=== PATIENT | male | born 1985 | race Caucasian/White ===

== ENCOUNTER 2021-03-08 09:07 | Outpatient (RCR) | payer OTHER, SELFPAY ==
[2021-03-08] MEDS: ACETAMINOPHEN 325 MG TABLET 650 MG PO (13:11)
[2021-03-08] MEDS: diphenhydrAMINE HCl CAP 25 MG CAPSULE PO (13:12)
[2021-03-08] MEDS: FAMOTIDINE 20 MG TABLET PO (13:12)
[2021-03-08 13:15] VITALS: BP 150/86; PULSE 100; RESP 18; TEMP 36.5; O2SAT 97
[2021-03-08 14:41] VITALS: BP 154/80
--- NOTE | 2021-03-09 10:14 | PC.NURSE ---
Patient states he is feeling great, no longer having elevated temperatures.
== END 2021-03-08 17:00 ==
LOC: AMCINF 09:07
PROVIDERS: PCP Physician Assistant Medical; Visit Provider Internal Medicine Hematology & Oncology
DX: U07.1 COVID-19 (principal); I10 Essential (primary) hypertension; E11.9 Type 2 diabetes mellitus without complications
CPT/HCPCS: A9270; M0243; Q0243

== ENCOUNTER 2025-01-22 01:25 | Day surgery (SDC) | payer OTHER, SELFPAY ==
--- NOTE | 2025-01-14 12:22 | SUR.PREOP ---
[facility] has started construction of its new state of the art ER which will open Spring 2026. With this, we anticipate parking may be a challenge for some our surgical patients and families. Parking spaces are limited but are available for all Surgical, obstetrics, and ER patients sharing this lot. If you arrive and find you are having a hard time finding a parking space, please note that we understand the challenges, please drive around the hospital and park near Hospital Entrance 1. When you enter this entrance, you can ask a volunteer to direct or take you back to the surgical waiting area to check in. We appreciate everyone?s understanding of these expected challenges while we build for your future. Report to the Outpatient Waiting Room, entrance under the green pavilion located off [address], at time _1245__ on date 01/22/25__. Planned Procedure Time: _1445__.? Time changes happen often and if your time is changed the preop area will call you the afternoon before. - You and your visitor will be asked to self-screen and do not enter if you have any COVID symptoms. Please call surgeon if you need to reschedule. - A mask is optional within the hospital at this time. Patients may have clear liquids (water, carbonated beverages, clear teas, apple juice) until 3 hours prior to surgery with a maximum of 20 ounces. - No food from 8hrs prior thel time of surgery and no smoking, or chewing tobacco (or any form of nicotine). No chewing gum, candy or mints. Take only the following medications with a SIP of water on the morning of surgery: __amlodipine._Instructed pt to take Lantus as ordered. No additional short acting insulin at bedtime, For surgery after 1100 take 1/2 of AM insulin dose. Call the PACU Day of surgery for any concerns Day of surgery. DO NOT STOP ANY OF YOUR OTHER PRESCRIPTION MEDICATIONS PRIOR TO SURGERY EXCEPT THE FOLLOWING Hold all vitamins and supplements for 3 days per anesthesiologist. Medications to discontinue per physician __(pt stated he does not take Ibuprofen frequently). Advise provider for further details. Date to take last dose of vitamins__01/18/25. Please no make-up, nail kazakh, hairspray, perfume, deodorant, or body powder the day of surgery.? No jewelry (including any body piercings) or valuables the day of surgery, leave them at home.? Please take a shower or bath the night before, or the morning of, surgery with an antibacterial soap.? Wear comfortable, loose fitting clothing.? Children are encouraged to wear pajamas. - Jewelry must be removed prior to entering the operating room.? Rings and piercings that are not removed may be cut off. - The hospital will not accept responsibility for valuables.? - Please leave all valuables, including medications, at home the day of surgery. If you are going home after surgery, a licensed dedicated intermodal truck driver must drive you home.? - NO public transportation without another adult if you receive anesthesia. - We recommend that an adult stay with you for 24 hours following discharge. - We also recommend that you do not drive, make important decision, drink alcoholic beverages, or take any drugs that were not prescribed by your health care provider for at least 24 hours after your discharge time. For Pediatric surgeries, we recommend two adults accompany the child home. Follow any additional instructions given to you from your surgeon. Telephone instructions given to ___Adam____and asked if any additional questions and then verbalized understanding. Patient advised to call surgeon office or pre surgery nurse liaison [phone] if any additional questions.
[2025-01-14 12:58] VITALS: BMI 44.9
--- OUTSIDE RECORDS SUMMARY | 2025-01-22 01:28 | XMS_ITS | Encounter Summary ---
Author Organization [facility] Address [address] [place] [address] Care Team Providers Care Platform Supervisor Name Role Phone Soumya Patton Primary Care Provider [phone] Encounter Details Date Type Department Care Team (Late st Contact Info) Description 01/17/2025 Orders Only [facility] [address] [place], [place] [id number] Vasquez West[address] [address] Social History Tobacco Use Types Packs/Day Years Used Date Smoking Tobacco: Every Day Smokeless Tobacco: Never Comments:Occassional Alcohol Use Standard Drinks/Week Comments Yes 0 (1 standard drink = 0.6 oz pur e alcohol) AUDIT-C Answer Date Recorded Frequency of Alcohol Consumption Never 10/20/2018 Average Number of Drinks Not on file 019 Frequency of Binge Drinking Not on file 10/02 PHQ-2 Answer Date Recorded PHQ-2 Score - If the patient scores above 3, please move on to questions 3-9 0 08/06/2021 Sex and Gender Information Value Date Recorded Sex Assigned at Not on file Legal Sex Male 5:58 PM CDT Gender Identity Not on file Sexual Orientation Not on file documented as of this encounter Plan of Treatment Not on file documented as of this encounter Results * (ABNORMAL) BASIC METABOLIC PANEL (01/17/2025 8:06 AM CDT) Pathologist [facility] GLUCOSE 160(H) 70 - 99 MG/DL 01/17/2025 9:12 AM CDT [facility] BUN 12 7 - 18 MG/DL 01/17/2025 9:12 AM T [facility] CREATININE S/P/B 0.75 0.7 - 1.3 MG/DL 01/17/2025 9:12 AM T [facility] SODIUM S/P/B 137 136 - 145 MMOL/L 01/17/2025 9:12 AM T [facility] POTASSIUM S/P/B 3.9 3.5 - 5.1 MMOL/L 01/17/2025 9:12 AM T [facility] CHLORIDE S/P/B 102 100 - 108 MMOL/L 01/17/2025 9:12 AM [facility] CO2 29.8 21 - 32 MMOL/L 01/17/2025 9:12 AM [facility] CALCIUM S/P/B 8.9 8.5 - 10.1 MG/DL 01/17/2025 9:12 AM [facility] ANION GAP 5.2 5 - 15 MMOL/L 01/17/2025 9:12 AM [facility] BUN CREATININE RATIO 16.0 6 - 26 01/17/2025 9:12 AM [facility] GFR ESTIMATE >90 >90 ML/MIN/1.7 3 M2 01/17/2025 9:12 AM [facility] Comment: NOTE: eGFR is not calculated for patients <18 years of age. This is an estimated GFR calculation using the new CKD EPI creatinine equation without race and so does not require a correction factor for race. This estimated GFR should not be used for calculating drug doses. 01/17/2025 8:06 AM CDT Vasquez West MD LABORATORY Final Result [facility] [address] [place] [address], documented in this encounter Visit Diagnoses Diagnosis Type I diabetes mellitus with manifestations ([facility]/HCC [facility])- Primary Type I (juvenile type) diabetes mellitus with other specified manifestations, not stated as uncontrolled documented in this encounter Care Teams Platform Supervisor Relationship Specialty Start Date End Date Soumya Patton PA [address] [place], [place] [id number] PCP - General PHYSICIAN BOOM CAT OPERATOR 08/14/24 documented as of this encounter
--- OUTSIDE RECORDS SUMMARY | 2025-01-22 01:28 | XMS_ITS | Clinical Summary ---
Author Organization [facility] Address [place] [address] Care Team Providers Care Offset Plate Maker Name Role Phone Soumya Patton Primary Care Provider [phone] Allergies No known active allergies Medications insulin aspart 100 UNIT/ML injection (PEN)Indication s:Sliding Inject into the skin 3 (three) times daily before meals. Active insulin glargine 100 UNIT/ML injection (PEN) Inject 76 Units into the skin nightly at bedtime. Active lisinopril 20 MG tablet Take 20 mg by mouth 2 (two) times a day. Active amlodipine 5 MG tablet TAKE 1 TABLET BY ORAL ROUTE EVERY MORNING 2 09/13/2018 Active hydroCHLOROthia zide 25 MG tablet Take 1 tablet (25 mg total) by mouth every morning. 30 tablet 03/31/2020 Active amLODIPine 10 MG tablet Take 10 mg by mouth daily. 07/12/2021 Active cetirizine 10 MG tablet Take 10 mg by mouth daily. 07/09/2021 Active ciprofloxacin 500 MG tablet Take 500 mg by mouth 2 (two) times daily. for 10 days 07/15/2021 Active furosemide 20 MG tablet TAKE 1 TABLET BY MOUTH ONCE DAILY IN THE MORNING FOR 7 DAYS 10/15/2020 Active Olmesartan Medoxomil-HCTZ 40-12.5 MG Tab Take 1 tablet by mouth daily. 07/18/2021 Active tobramycin-dexa methasone ophthalmic solution INSTILL 1 DROP INTO RIGHT EYE 4 TIMES DAILY STARTING AFTER SURGERY 03/01/2021 Active ID NOW COVID-19 Kit TEST DIRECTED TODAY 03/04/2021 Active Active Problems No known active problems Encounters Date Type Department Care Team Description 01/17/2025 7:35 AM CDT - 01/17/2025 11:59 PM CDT Hospital Encounter [facility] [address] [place] [address] Vasquez West MD Discharge Disposition: Home or Self Care (Routine Discharge) 01/17/2025 Orders Only [facility] [address] [place] [address] Vasquez West MD 01/17/2025 Travel from Last 3 Months Family History Medical History Relation Comments Diabetes Child Diabetes Father Relation Status Comments Child Father Mother Alive Social History Tobacco Use Types Packs/Day Years Used Date Smoking Tobacco: Every Day Smokeless Tobacco: Never Tobacco Cessation:Ready to Q uit: No; Counseling Given: Yes Comments:Occassional Alcohol Use Standard Drinks/Week Comments Yes [...] on file Sexual Orientation Not on file Last Filed Vital Signs Vital Sign Reading Time Taken Comments Blood Pressure 142/78 08/06/2021 1:07 PM CDT Pulse 110 08/06/2021 1:07 PM CDT Temperature 36.6 C (97.8 F) 08/06/2021 1:07 PM CDT Respiratory Rate 20 08/06/2021 1:07 PM CDT Oxygen Saturation 95% 08/06/2021 1:07 PM CDT Inhaled Oxygen Concentration - - Weight 143.3 kg (316 lb) 08/06/2021 1:07 PM CDT Height 180.3 cm (5' 11) 08/06/2021 1:07 PM CDT Body Mass Index 44.07 08/06/2021 1:07 PM CDT Plan of Treatment Health Maintenance Due Date Last Done Comments Annual Physical 1989 Diabetes: Retinopathy Eye Exam 2004 Hepatitis C 2004 DTaP, Tdap and Td Vaccines (1 - Tdap) 2005 Hepatitis B Vaccines (1 of 3 - 19+ 3-dose series) 2005 Pneumococcal Vaccine: Pediatrics (0 to 5 Years) and At-Risk Patients (6 to 49 Years) (1 of 2 - PCV) 2005 HPV Vaccines (1 - 3-dose SCDM series) 2013 Hemoglobin A1C 11/01/2020 05/04/2020, 07/0 12/2019, 09/24/2018, Additional history exists COVID-19 Vaccine ( - season) 2024 07/07/2020 Influenza Adult (#1) 2025 Kidney Health Evaluation 08/14/2025 08/14/2024 Lipid Panel 08/14/2025 08/14/2024, 070 12/2019, 09/24/2018, Additional history exists Hepatitis A Vaccines Aged Out No long er eligible based on patient's age to complete this topic Meningococcal B Vaccine Aged Out No l onger eligible based on patient's age to complete this topic Meningococcal Vaccine Aged Out No danielle quoc eligible based on patient's age to complete this topic RSV Immunizations Under 20 Months Aged Out No longer eligible based on patient's age to complete this topic Procedures Procedure Name Priority Date/Time Associated Diagnosis Comments BASIC METABOLIC PANEL Routine 01/17/2025 8:06 AM CDT Type I diabetes mellitus with manifestations ([facility]) LIPID PANEL Routine 08/14/2024 7:26 AM CDT Fatigue Impotence of organic origin Vitamin D deficiency Type I diabetes mellitus with manifestations ([facility]/HCC) Essential hypertension, malignant HEMOGLOBIN, GLYCOSYLATED Routine 05/04/2020 7:30 AM TIMBER PACKER Diabetes mellitus from Last 3 Months or Most Recently Relevant to Health Maintenance Results * (ABNORMAL) BASIC METABOLIC PANEL (01/17/2025 8:06 AM CDT) GLUCOSE 160(H) 70 - 99 MG/DL 01/17/2025 9:12 AM CDT [facility] BUN 12 7 - 18 MG/DL 01/17/2025 9:12 AM [facility] CREATININE S/P/B 0.75 0.7 - 1.3 MG/DL 01/17/2025 9:12 AM T [facility] SODIUM S/P/B 137 136 - 145 MMOL/L 01/17/2025 9:12 AM T [facility] POTASSIUM S/P/B 3.9 3.5 - 5.1 MMOL/L 01/17/2025 9:12 AM T [facility] CHLORIDE S/P/B 102 100 - 108 MMOL/L 01/17/2025 9:12 AM [facility] CO2 29.8 21 - 32 MMOL/L 01/17/2025 9:12 AM [facility] CALCIUM S/P/B 8.9 8.5 - 10.1 MG/DL 01/17/2025 9:12 AM [facility] ANION GAP 5.2 5 - 15 MMOL/L 01/17/2025 9:12 AM [facility] BUN CREATININE RATIO 16.0 6 - 26 01/17/2025 9:12 AM [facility] GFR ESTIMATE >90 >90 ML/MIN/1.7 3 M2 01/17/2025 9:12 AM [facility] Comment: NOTE: eGFR is not calculated for patients <18 years of age. This is an estimated GFR calculation using the new CKD EPI creatinine equation without race and so does not require a correction factor for race. This estimated GFR should not be used for calculating drug doses. 01/17/2025 8:06 AM CDT Vasquez West MD LABORATORY Final Result [facility] [address] [place] [address], * LIPID PANEL (08/14/2024 7:26 AM CDT) CHOLESTEROL 171 <200.0 MG/DL 08/14/2024 8:20 AM CDT [facility] TRIGLYCERIDES 109 <150 MG/DL 08/14/2024 8:20 AM CDT [facility] HDL 72 >40.0 MG/DL 08/14/2024 8:20 AM CDT [facility] LDL (CALCULATED) 77 <100 MG/DL 08/15/19 8:20 AM CDT [facility] NON HDL CHOLESTEROL 99 <130 MG/DL 08/14 8:20 AM CDT [facility] CHOL/HDL RATIO 2.4 0.0 - 4.5 08/14/2024 8:20 AM CDT [facility] VLDL CALCULATION 22 5 - 55 MG/DL 08/14/2024 8:20 AM T [facility] LIPID INTERPRETATION 08/14/2024 8:20 AM T [facility] Comment: NIH CONCENSUS REPORT RECOMMENDATIONS: ADULT CHILD LOW RISK: CHOLESTEROL <200 <170 TRIGLYCERIDE <150 --- HDL >=60 --- LDL <100 <110 BORDERLINE: CHOLESTEROL 200-239 170-199 TRIGLYCERIDE 150-199 --- HDL 40-59 --- LDL 100-159 110-129 HIGH RISK: CHOLESTEROL >=240 >=200 TRIGLYCERIDE >=200 --- HDL <40 --- LDL >=160 >=130 08/14/2024 7:26 AM CDT Soumya BARBER LABORATORY Final Result [facility] [address] [place] [id number], * (ABNORMAL) HEMOGLOBIN, GLYCOSYLATED (05/04/2020 7:30 AM TIMBER PACKER) HGB A1C 8.5(H) <5.7 % 05/04/2020 1:38 PM TIMBER PACKER [facility] Comment: INCREASED RISK OF DIABETES <5.7% NON-DIABETES 5.7-6.4% INCREASED RISK FOR FUTURE DIABETES > OR = 6.5 CONSISTENT WITH DIABETES STANDARDS OF MEDICAL CARE IN DIABETES-2010 DIABETES CARE, 33(SUPP 1): S1-S61,2009 05/04/2020 7:30 AM TIMBER PACKER Wilmer Hooker MD LABORATORY Final Result [facility] [address] [place] [address], from Last 3 Months or Most Recently Relevant to Health Maintenance Insurance [facility] Care Teams Offset Plate Maker Relationship Specialty Start Date End Date Soumya Patton PA [address] [place] [id number] PCP - General PHYSICIAN ANALYSIS ENGINEER 08/14/24
--- NOTE | 2025-01-22 06:59 | WPDHPUPDATE1 ---
History and Physical Update Update Date/Time: 01/22/25 06:59 Patient seen and examined in pre-operative holding area. No interval change in medical history or symptoms. Patient recalls previous discussion of benefits and alternatives to procedure. Continues to desire to proceed with right index and middle finger a1 wyatt release. Reviewed procedure, post-op expectations and risks including but not limited to bleeding, infection, injury to tendon/nerve/vessel, decreased hand function, stiffness, RSD, no change or worsening of symptoms. I discussed the possible use of assistants and their participation in the case. Patient stated understanding and signed the consent form wishing to proceed.
--- NOTE | 2025-01-22 07:00 | W.PM.PROC2 ---
Procedure Note - Detailed Date of Procedure 01/22/25 Pre-op Diagnosis rt Index & Middle Trigger Finger Post-op Diagnosis Same Procedure Performed R IF and MF a1 wyatt relese Surgeon Minor Gregory MD Sports Editor Kenia Burns PA-C Anesthesia MAC Description of Procedure INFORMED CONSENT: The patient was seen and examined and marked in the pre-op area.? The patient signed the consent form. PROCEDURE IN DETAIL:The patient taken back to OR on the stretcher in supine position. Time out performed with anesthesia, surgeon and staff agreeing on patient's name site and surgery to be performed SCDs were placed on the lower extremities and inflated. A tourniquet was placed on {right} upper extremity and antibiotics given IV After anesthesia administered sedation I injected {6}cc 1%lido and 0.5% marcaine plain at the operative site The?{right upper extremity}?was prepped and draped in sterile fashion the??{right upper extremity} was? exsanguinated with Esmarch bandage and tourniquet inflated to 250mmHg I took my attention 1st to the right index finger where I made a longitudinal incision over the A1 wyatt through skin and dermis with a 15 blade scalpel. Littler scissors were used to spread through subcutaneous tissue down to the A1 wyatt. The A1 wyatt was identified and initially incised with 15 blade scalpel. Littler scissors were used to spread above it and below it proximally and distally completing the transection entirely. Ragnell retractor was used withdrawal the FDS and FDP tendons for inspection. The tendons were free of masses and synovitis and gliding smoothly in the sheath without triggering or crepitus. I irrigated with normal saline and closed with 4-0 chromic. Next I turned my attention to the right middle finger where the same procedure was performed.I made a longitudinal incision over the right middle finger A1 wyatt through skin and dermis with a 15 blade scalpel. Littler scissors were used to spread through subcutaneous tissue down to the A1 wyatt. The A1 wyatt was identified and initially incised with 15 blade scalpel. Littler scissors were used to spread above it and below it proximally and distally completing the transection entirely. Ragnell retractor was used withdrawal the FDS and FDP tendons for inspection. The tendons were free of masses and synovitis and gliding smoothly in the sheath without triggering or crepitus. I irrigated with normal saline and closed with 4-0 chromic. A dressing of xeroform, 4x4, melisa, and an konrad bandage was applied after the tourniquet was let down noting the hand was warm and well perfused. The patient was then awaken from anesthesia and transferred to the recovery room in stable condition.? Complications - none EBL- 0cc Disposition - home in stable condition Kenia Burns PA-C was essential for positioning, retraction, closure and dressing placement. [facility] Billing Surgery - Charge Forward: Surgery Billing ([id number] same for kenia adding )
[2025-01-22 09:39] VITALS: BMI 45.8
[2025-01-22 09:45] VITALS: BP 131/76; PULSE 91; RESP 18; TEMP 36.7; O2SAT 97
[2025-01-22] MEDS: LACTATED RINGERS 1,000 ML 30 ML IV CONT (09:50)
[2025-01-22] MEDS: ACETAMINOPHEN 500 MG TABLET 1000 MG PO (09:55)
--- NOTE | 2025-01-22 10:39 | P.PNAN_ITS ---
Anes - Initial Pre Proc Eval Procedure: Operation Date: 01/22/25 11:30 Proposed Procedures p A 1 Yeimi Release Right Index and Middle Finger - Minor Gregory MD Date/Time: 01/22/25 10:39 Surgeon: Minor Gregory MD Pre Op Diagnosis: rt Index & Middle Trigger Finger Patient Data Age: 39 Gender: M Height: 1.8 m Weight: 148.9 kg Last Vital Signs Temp 36.7 C 01/22/25 09:45 Pulse 91 01/22/25 09:45 Resp 18 01/22/25 09:45 BP 131/76 01/22/25 09:45 Pulse Ox 97 01/22/25 09:45 O2 Del Method Room Air 01/22/25 09:45 Allergies Allergy/AdvReac Type Severity Reaction Status Date / Time No Known Allergies Allergy Unknown Verified 01/22/25 10:27 Home Medications ?Medication ?Instructions ?Recorded ?Confirmed ?Type blood sugar diagnostic (Contour #100 ea 03/21/1908/19 Rx Test Strips) pen needle, diabetic 31 gauge x #100 ea 06/03/1908/19 Rx / (BD Ultra-Fine Mini Pen Needle) ibuprofen 800 mg tablet 800 mg PO Q6H PRN pain #60 t abs 07/30/24 01/14/25 Rx cholecalciferol (vitamin D3) 25 25 mcg PO DAILY #1 cap 08/19/24 01/22/25 Rx mcg (1,000 unit) capsule multivitamin 1 tablet PO DAILY 08/19/24 1 History cetirizine 10 mg tablet 10 mg PO DAILY #90 tabs 06/06/2501/22/25 Rx pantoprazole 40 mg tablet,delayed 40 mg PO QAM #30 tab s 09/10/24 01/22/25 Rx release (Protonix) Lantus Solostar U-100 Insulin 100 See Rx Instructions .Route 11/13/24 01/22/25 Rx unit/mL (3 mL) subcutaneous pen .COMPLEX #45 mL (insulin glargine) Novolog FlexPen U-100 Insulin 100 See Rx Instructions .Route 11/18/24 01/22/25 Rx unit/mL (3 mL) subcutaneous .COMPLEX #30 mL (insulin aspart U-100) olmesartan 40 1 tablet PO DAILY #90 tabs 0 12/09/24 01/22/25 Rx mg-hydrochlorothiazide 12.5 mg tablet amlodipine 10 mg tablet 10 mg PO DAILY #90 tabs 12/0201/22/25 Rx tramadol 50 mg tablet 50 mg PO Q6H PRN pain #12 ta bs 01/22/25 Rx Laboratory Tests 01/22/25 10:02 POC Capillary Glucose 144 H mg/dl (65-105) Patient hx anesthesia problems: none Family hx anesthesia problems: none Results Review: All pre-operative results and documents have been reviewed as part of the pre- operative evaluation. [facility] Past Medical History Medical History Hyperlipidemia Dyspepsia Erectile dysfunction COVID-19 Essential (primary) hypertension Type 1 diabetes mellitus with complication retinopathy of the right eye Vitamin D deficiency, unspecified Family History Family History Father Family history of diabetes mellitus in first degree relative Other Diabetes mellitus Family history of arthritis Social History Social History Smoking packs per day: 2 Smoking cigarettes per day: 40.0 Years smoked: 12 Smoking pack-years: 24.00 Smoking status: Former smoker Tobacco type: e-cigarettes/vaping Second hand tobacco smoke exposure: No Smoking end date: 12/15/24 Alcohol intake: current Alcohol use details: SOCIAL Substance use: current Substance use type: marijuana Other substance usage details: RELAX Living arrangements: with family Occupation/Education: occupation Gender identity (if verbalized by the patient): Male Spiritual care concerns: No Anes - Eval Final PreProcedure Day of Procedure 01/22/25 10:39 Patient weight: morbidly obese Heart: regular rate and rhythm Lungs: clear to auscultation Airway: Mallampati scale class II Neurological: alert and oriented Last oral intake: >/= 8 hours ASA classification: III Emergent: no Anesthetic plan: proceed Anesthesia type and monitoring: general GIVS and standard monitoring Results Review: All pre-operative results and documents have been reviewed as part of the pre- operative evaluation. Informed Consent: The patient's anesthetic plan and its attendant risks and benefits were discussed with the patient/family/POA. Questions were solicited and answers provided to the satisfaction of the patient/family/POA.
[2025-01-22] MEDS: ceFAZolin 3 GM/D5W 100 ML 100 ML IVPB (10:50)
[2025-01-22] MEDS: LIDO 1%/EPINEPHRINE 1:100,000 20 ML VIAL 5 ML INFILTRATE (10:54)
[2025-01-22 11:14] VITALS: BP 113/76; PULSE 87; RESP 20; O2SAT 94
[2025-01-22 11:40] VITALS: BP 113/76; PULSE 87
[2025-01-22 12:05] VITALS: BP 131/69; RESP 16
== END 2025-01-22 12:20 | disposition home or self-care (01) ==
PROVIDERS: PCP Physician Assistant Medical; Visit Provider Plastic Surgery
PROC: (CPT 26055; principal; 2025-01-22 11:30)
DX: M65.321 Trigger finger, right index finger (principal); M65.331 Trigger finger, right middle finger; E10.319 Type 1 diabetes mellitus with unspecified diabetic retinopathy without macular edema; Z87.891 Personal history of nicotine dependence; F12.90 Cannabis use, unspecified, uncomplicated; E66.01 Morbid (severe) obesity due to excess calories; Z68.42 Body mass index [BMI] 45.0-49.9, adult
CPT/HCPCS: 26055 ×2; 82948; A9270; J0690; J2003; J2004; J2250; J2704; J3010; J7120

== ENCOUNTER 2025-03-19 03:37 | Day surgery (SDC) | payer OTHER, SELFPAY ==
--- NOTE | 2025-03-17 11:02 | PC.NURSE ---
[facility] has started construction of its new state of the art ER which will open Spring 2026. With this, we anticipate parking may be a challenge for some our surgical patients and families. Parking spaces are limited but are available for all Surgical, obstetrics, and ER patients sharing this lot. If you arrive and find you are having a hard time finding a parking space, please note that we understand the challenges, please drive around the hospital and park near Hospital Entrance 1. When you enter this entrance, you can ask a volunteer to direct or take you back to the surgical waiting area to check in. We appreciate everyone?s understanding of these expected challenges while we build for your future. Report to the Outpatient Waiting Room, entrance under the green pavilion located off [facility], at time _8:45 AM on date __03/19/25 . Planned Procedure Time: __10:45 AM .? Time changes happen often and if your time is changed the preop area will call you the afternoon before. - You and your visitor will be asked to self-screen and do not enter if you have any COVID symptoms. Please call surgeon if you need to reschedule. - A mask is optional within the hospital at this time. NOTHING TO EAT AFTER MIDNIGHT NOTHING TO DRINK 8 HOURS PRIOR TO SURGERY PER DR WALLER Take only the following medications with a SIP of water on the morning of surgery: ___METOPROLOL DO NOT STOP ANY OF YOUR OTHER PRESCRIPTION MEDICATIONS PRIOR TO SURGERY EXCEPT THE FOLLOWING Hold all vitamins and supplements for 3 days per anesthesiologist.LAST DOSE 03/15/25 Medications to discontinue per physician NONE Date to take last dose Please no make-up, nail [place], hairspray, perfume, deodorant, or body powder the day of surgery.? No jewelry (including any body piercings) or valuables the day of surgery, leave them at home.? Please take a shower or bath the night before, or the morning of, surgery with an antibacterial soap.? Wear comfortable, loose fitting clothing.? Children are encouraged to wear pajamas. - Jewelry must be removed prior to entering the operating room.? Rings and piercings that are not removed may be cut off. - The hospital will not accept responsibility for valuables.? - Please leave all valuables, including medications, at home the day of surgery. If you are going home after surgery, a licensed commercial trailer truck driver must drive you home.? - NO public transportation without another adult if you receive anesthesia. - We recommend that an adult stay with you for 24 hours following discharge. - We also recommend that you do not drive, make important decision, drink alcoholic beverages, or take any drugs that were not prescribed by your health care provider for at least 24 hours after your discharge time. For Pediatric surgeries, we recommend two adults accompany the child home. Follow any additional instructions given to you from your surgeon. Telephone instructions given to ___PATIENT and asked if any additional questions and then verbalized understanding. Patient advised to call surgeon office or pre surgery nurse liaison [phone] if any additional questions.
[2025-03-17 11:08] VITALS: BMI 45.3
--- NOTE | 2025-03-19 07:02 | PM.HPGS ---
History of Present Illness History of Present Illness Chief complaint: Left Thumb Trigger Finger Narrative: Patient seen and examined in pre-operative holding area. No interval change in medical history or symptoms. Patient recalls previous discussion of benefits and alternatives to procedure. Continues to desire to proceed with left thumb and index finger a1 wyatt release . Reviewed procedure, post-op expectations and risks including but not limited to bleeding, infection, injury to tendon/nerve/vessel, decreased hand function, stiffness, RSD, no change or worsening of symptoms. I discussed the possible use of assistants and their participation in the case. Patient stated understanding and signed the consent form wishing to proceed. 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 OU; macular edema OS Hyperlipidemia Dyspepsia Erectile dysfunction COVID-19 Essential (primary) hypertension Type 1 diabetes mellitus with complication Vitamin D deficiency, unspecified Family History Family History Father Family history of diabetes mellitus in first degree relative Other Diabetes mellitus Family history of arthritis Social History Social History Smoking packs per day: 2 Smoking cigarettes per day: 40.0 Years smoked: 12 Smoking pack-years: 24.00 Smoking status: Former smoker Tobacco type: e-cigarettes/vaping Second hand tobacco smoke exposure: No Smoking end date: 12/15/24 Alcohol intake: current Alcohol use details: SOCIAL Substance use: current Substance use type: marijuana Other substance usage details: RELAX Living arrangements: with family Occupation/Education: occupation Gender identity (if verbalized by the patient): Male Spiritual care concerns: No Meds Home Medications and Allergies Home Medications ?Medication ?Instructions ?Recorded ?Confirmed ?Type blood sugar diagnostic (Contour #100 ea 03/21/19 03/18/25 Rx Test Strips) pen needle, diabetic 31 gauge x #100 ea 06/03/19 03/18/25 Rx 3/16 (BD Ultra-Fine Mini Pen Needle) cholecalciferol (vitamin D3) 25 25 mcg PO DAILY #1 cap 08/19/24 03/19/25 Rx mcg (1,000 unit) capsule multivitamin 1 tablet PO DAILY 08/19/24 03/19/25 History pantoprazole 40 mg tablet,delayed 40 mg PO QAM #30 tabs 09/10/24 03/18/25 Rx release (Protonix) Lantus Solostar U-100 Insulin 100 See Rx Instructions .Route 02/11/25 03/19/25 Rx unit/mL (3 mL) subcutaneous pen .COMPLEX #45 mL (insulin glargine) cetirizine 10 mg tablet 10 mg PO DAILY #90 tabs 03/13/25 03/18/25 Rx Novolog FlexPen U-100 Insulin 100 See Rx Instructions .Route 03/14/25 03/19/25 Rx unit/mL (3 mL) subcutaneous .COMPLEX #30 mL (insulin aspart U-100) metoprolol succinate 50 mg 50 mg PO DAILY #90 tabs 03/17/25 03/19/25 Rx tablet,extended release 24 hr olmesartan 40 mg-amlodipine 10 1 tablet PO DAILY #90 tabs 03/17/25 03/19/25 Rx mg-hydrochlorothiazide 25 mg tablet tramadol 50 mg tablet 50 mg PO Q6H PRN pain #12 tabs 03/19/25 Rx Allergies Allergy/AdvReac Type Severity Reaction Status Date / Time No Known Allergies Allergy Unknown Verified 03/17/25 10:55 Exam Narrative: unchanged Assessment and Plan Assessment and plan (1) Trigger finger: Qualifiers: Laterality: unspecified laterality Trigger finger location: unspecified finger Qualified Code(s): M65.30 - Trigger finger, unspecified finger Code(s): M65.30 - Trigger finger, unspecified finger Status: Acute Assessment and Plan: cont as above
--- NOTE | 2025-03-19 07:03 | W.PM.PROC2 ---
Procedure Note - Detailed Date of Procedure 03/19/25 Pre-op Diagnosis Left Thumb and index Trigger Finger Post-op Diagnosis Same Procedure Performed left thumb and index a1 wyatt release Surgeon Minor Gregory MD Television Tube Inspector kenia melchor pa-c Anesthesia MAC Description of Procedure INFORMED CONSENT: The patient was seen and examined and marked in the pre-op area.? The patient signed the consent form. PROCEDURE IN DETAIL:The patient taken back to OR on the stretcher in supine position. Time out performed with anesthesia, surgeon and staff agreeing on patient's name site and surgery to be performed SCDs were placed on the lower extremities and inflated. A tourniquet was placed on {left} upper extremity and antibiotics given IV After anesthesia administered sedation I injected {6}cc 1%lido and 0.5% marcaine plain for digital block in the palm The?{left upper extremity}?was prepped and draped in sterile fashion the??{left upper extremity} was? exsanguinated with Esmarch bandage and tourniquet inflated to 250mmHg I made an oblique incision proximal to the left thumb MP joint flexion crease through skin and dermis with a 15 blade scalpel. Littler scissors were used to spread down to the A1 wyatt. The A1 wyatt was identified and initially incised with 15 blade scalpel. Littler scissors were used to spread above and below proximally distally completing the transection entirely. Ragnell retractor was used withdrawal the FPL tendon for inspection. The tendon was free of masses and synovitis and gliding smoothly in the sheath without triggering or crepitus. I irrigated with normal saline and closed with 4-0 chromic. I took my attention to the left index finger where I made a longitudinal incision over the A1 wyatt through skin and dermis with a 15 blade scalpel. Littler scissors were used to spread down to the A1 wyatt. The A1 wyatt was identified and initially incised with a 15 blade scalpel. Littler scissors were used to spread above and below it proximally and distally and completing the transection entirely. Ragnell retractor was used withdrawal the FDS and FDP tendons were inspection. The tendons were free of masses the synovitis and gliding smoothly in the sheath without triggering or crepitus. I irrigated with normal saline and closed with 4-0 chromic. A dressing of xeroform, 4x4, melisa, and a an konrad bandage was applied after the tourniquet was let down noting the hand was warm and well perfused. The patient was then awaken from anesthesia and transferred to the recovery room in stable condition.? Complications - none EBL- 0cc Disposition - home in stable condition Kenia Melchor PA-C was essential for positioning, retraction, closure and dressing placement. [facility] [place] Billing Surgery - Charge Forward: Surgery Billing ([id number],[id number] same for kenia adding )
[2025-03-19] MEDS: LACTATED RINGERS 1,000 ML 30 ML IV CONT (12:35)
[2025-03-19 12:48] VITALS: BP 139/89; PULSE 104; RESP 18; TEMP 36.1; O2SAT 97
[2025-03-19] MEDS: ACETAMINOPHEN 500 MG TABLET 1000 MG PO (12:52)
--- NOTE | 2025-03-19 13:04 | WPDANESEPPF ---
Anes - Initial Pre Proc Eval Procedure: Operation Date: 03/19/25 14:15 Proposed Procedures p Left Thumb and Left Index Trigger Finger A 1 Yeimi Release - Minor Gregory MD Date/Time: 03/19/25 13:04 Surgeon: Minor Gregory MD Pre Op Diagnosis: Left Thumb Trigger Finger Patient Data Age: 39 Gender: M Height: 1.8 m Weight: 147.6 kg Last Vital Signs Temp 96.9 F L 03/19/25 12:48 Pulse 104 H 03/19/25 12:48 Resp 18 03/19/25 12:48 BP 139/89 03/19/25 12:48 Pulse Ox 97 03/19/25 12:48 O2 Del Method Room Air 03/19/25 12:48 Allergies Allergy/AdvReac Type Severity Reaction Status Date / Time No Known Allergies Allergy Unknown Verified 03/17/25 10:55 Home Medications ?Medication ?Instructions ?Recorded ?Confirmed ?Type blood sugar diagnostic (Contour #100 ea 03/21/19 03/18/25 Rx Test Strips) pen needle, diabetic 31 gauge x #100 ea 06/03/19 03/18/25 Rx 3/16 (BD Ultra-Fine Mini Pen Needle) cholecalciferol (vitamin D3) 25 25 mcg PO DAILY #1 cap 08/19/24 03/19/25 Rx mcg (1,000 unit) capsule multivitamin 1 tablet PO DAILY 08/19/24 03/19/25 History pantoprazole 40 mg tablet,delayed 40 mg PO QAM #30 tabs 09/10/24 03/18/25 Rx release (Protonix) Lantus Solostar U-100 Insulin 100 See Rx Instructions .Route 02/11/25 03/19/25 Rx unit/mL (3 mL) subcutaneous pen .COMPLEX #45 mL (insulin glargine) cetirizine 10 mg tablet 10 mg PO DAILY #90 tabs 03/13/25 03/18/25 Rx Novolog FlexPen U-100 Insulin 100 See Rx Instructions .Route 03/14/25 03/19/25 Rx unit/mL (3 mL) subcutaneous .COMPLEX #30 mL (insulin aspart U-100) metoprolol succinate 50 mg 50 mg PO DAILY #90 tabs 03/17/25 03/19/25 Rx tablet,extended release 24 hr olmesartan 40 mg-amlodipine 10 1 tablet PO DAILY #90 tabs 03/17/25 03/19/25 Rx mg-hydrochlorothiazide 25 mg tablet tramadol 50 mg tablet 50 mg PO Q6H PRN pain #12 tabs 03/19/25 Rx Laboratory Tests 03/19/25 12:57 POC Capillary Glucose 206 H mg/dl (65-105) Patient hx anesthesia problems: none Family hx anesthesia problems: none Results Review: All pre-operative results and documents have been reviewed as part of the pre-operative evaluation. 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 OU; macular edema OS Hyperlipidemia Dyspepsia Erectile dysfunction COVID-19 Essential (primary) hypertension Type 1 diabetes mellitus with complication Vitamin D deficiency, unspecified Family History Family History Father Family history of diabetes mellitus in first degree relative Other Diabetes mellitus Family history of arthritis Social History Social History Smoking packs per day: 2 Smoking cigarettes per day: 40.0 Years smoked: 12 Smoking pack-years: 24.00 Smoking status: Former smoker Tobacco type: e-cigarettes/vaping Second hand tobacco smoke exposure: No Smoking end date: 12/15/24 Alcohol intake: current Alcohol use details: SOCIAL Substance use: current Substance use type: marijuana Other substance usage details: RELAX Living arrangements: with family Occupation/Education: occupation Gender identity (if verbalized by the patient): Male Spiritual care concerns: No Anes - Eval Final PreProcedure Day of Procedure 03/19/25 13:04 Patient weight: morbidly obese Lungs: normal air movement Airway: Mallampati scale class III Neurological: alert and oriented Last oral intake: >/= 8 hours ASA classification: III Emergent: no Anesthetic plan: proceed Anesthesia type and monitoring: general GIVS and standard monitoring Results Review: All pre-operative results and documents have been reviewed as part of the pre-operative evaluation. BMI 45, type 1 DM, fsbs 206, active at the gym, workouts, no cp or sob. Informed Consent: The patient's anesthetic plan and its attendant risks and benefits were discussed with the patient/family/POA. Questions were solicited and answers provided to the satisfaction of the patient/family/POA.
[2025-03-19] MEDS: ceFAZolin 3 GM/D5W 100 ML 100 ML IVPB (13:15)
[2025-03-19] MEDS: BUPivacaine HCL 0.5% 10 ML AMP INFILTRATE (13:16)
[2025-03-19] MEDS: LIDOCAINE 1% LOCAL INJ 10 ML VIAL INFILTRATE (13:17)
[2025-03-19 13:32] VITALS: BP 129/68; PULSE 94; RESP 16; O2SAT 92
[2025-03-19 14:02] VITALS: BP 124/81; PULSE 90; RESP 16; O2SAT 96
[2025-03-19 14:24] VITALS: BP 129/70; PULSE 88; RESP 16
== END 2025-03-19 14:27 | disposition home or self-care (01) ==
PROVIDERS: PCP Nurse Practitioner Adult Health; Visit Provider Plastic Surgery
PROC: (CPT 26055; principal; 2025-03-19 14:15)
DX: M65.322 Trigger finger, left index finger (principal); M65.312 Trigger thumb, left thumb; E10.311 Type 1 diabetes mellitus with unspecified diabetic retinopathy with macular edema; Z87.891 Personal history of nicotine dependence; F12.90 Cannabis use, unspecified, uncomplicated
CPT/HCPCS: 26055 ×2; 82948; A9270; J0690; J2003; J2250; J2405; J2704; J3010; J7120